=== PATIENT | male | born 1990 | race Caucasian/White ===

== ENCOUNTER 2021-01-19 14:09 | Emergency (ER) | payer OTHER ==
[~2021-01-19] VITALS: Ht 175.3 cm; Wt 113.4 kg
[~2021-01-19 14:09] MED LIST: IBUPROFEN 800800 MG PO; INDERAL40 MG PO; OXCARBAZEPINE; OXCARBAZEPINE150 MG PO; OXCARBAZEPINE300 M1 PO; SEROQUEL XR200 MG PO
[2021-01-19 14:46] LABS: URINE BLOOD NEGATIVE (Negative); URINE CLARITY CLEAR; URINE COLOR YELLOW; URINE GLUCOSE-RANDOM* NEGATIVE (Negative); URINE KETONES TRACE (Negative); URINE LEUKOCYTES-REFLEX NEGATIVE (Negative); URINE NITRITE-REFLEX NEGATIVE (Negative); URINE PROTEIN (DIPSTICK) NEGATIVE (Negative); URINE SPECIFIC GRAVITY >= 1.030 (1.005-1.035)
[2021-01-19 14:48] LABS: ICTOTEST (BILI CONFIRMATORY) Negative (Negative); URINE BILIRUBIN NEGATIVE (Negative)
[2021-01-19 14:57] LABS: ABSOLUTE NEUTROPHILS 6.6 thou/uL (1.4-8.2); BASOPHILS 0.7 % (0.0-2.0); EOSINOPHILS 1.7 % (0.0-3.0); HEMATOCRIT 44.6 % (42.0-52.0); HEMOGLOBIN 15.3 gm/dL (14.0-18.0); LYMPHOCYTES 20.1 % (24.0-44.0); MCH 30.1 pg (26.0-34.0); MCHC 34.4 g/dL (28.0-37.0); MCV 87.6 fL (80.0-100.0); MONOCYTES 8.3 % (1.0-8.0); PLATELET COUNT 262 thou/uL (150-400); POLYS 69.2 % (36.0-66.0); RBC 5.09 mil/uL (4.50-6.00); RDW 13.7 % (10.5-14.5); WBC 9.5 thou/uL (4.0-11.0)
[2021-01-19 15:06] LABS: CALCIUM 9.1 mg/dL (8.5-10.1); CREATININE 0.9 mg/dL (0.7-1.3); POTASSIUM 3.8 mmol/L (3.5-5.1)
[2021-01-19] MEDS ORDERED: ONDANSETRON HCL4 M2 PO (18:20)
[2021-01-19] MEDS ORDERED: HYDROCODON-ACE1 EAC7 PO (18:20)
[2021-01-19 18:27] VITALS: BP 161/105
== END 2021-01-19 18:40 | disposition home or self-care (01) ==
LOC: ER 14:09
PROVIDERS: Emergency Medicine; Nurse Practitioner
DX: R30.0 Dysuria (principal); E66.9 Obesity, unspecified; G40.909 Epilepsy, unspecified, not intractable, without status epilepticus; F84.0 Autistic disorder; Z88.8 Allergy status to other drugs, medicaments and biological substances; Z79.899 Other long term (current) drug therapy

== ENCOUNTER 2021-01-30 18:53 | Emergency (ER) | payer OTHER ==
[~2021-01-30] VITALS: Ht 177.8 cm; Wt 117.9 kg
[~2021-01-30 18:53] MED LIST changes: +HYDROCODON-ACE1 EAC7 PO; +ONDANSETRON HCL4 M2 PO
[2021-01-30 19:39] LABS: URINE BILIRUBIN NEGATIVE (Negative); URINE BLOOD NEGATIVE (Negative); URINE CLARITY CLEAR; URINE COLOR YELLOW; URINE GLUCOSE-RANDOM* NEGATIVE (Negative); URINE KETONES TRACE (Negative); URINE LEUKOCYTES-REFLEX NEGATIVE (Negative); URINE NITRITE-REFLEX NEGATIVE (Negative); URINE PROTEIN (DIPSTICK) NEGATIVE (Negative); URINE SPECIFIC GRAVITY 1.015 (1.005-1.035)
[2021-01-30 20:05] LABS: ABSOLUTE NEUTROPHILS 6.8 thou/uL (1.4-8.2); BASOPHILS 0.7 % (0.0-2.0); EOSINOPHILS 2.1 % (0.0-3.0); HEMATOCRIT 44.6 % (42.0-52.0); HEMOGLOBIN 15.3 gm/dL (14.0-18.0); LYMPHOCYTES 27.4 % (24.0-44.0); MCH 30.6 pg (26.0-34.0); MCHC 34.3 g/dL (28.0-37.0); MCV 89.2 fL (80.0-100.0); MONOCYTES 6.5 % (1.0-8.0); PLATELET COUNT 314 thou/uL (150-400); POLYS 63.3 % (36.0-66.0); WBC 10.7 thou/uL (4.0-11.0)
[2021-01-30 20:14] LABS: ANION GAP 10 mmol/L (7-16); BUN 20 mg/dL (7-18); CALCIUM 9.6 mg/dL (8.5-10.1); CHLORIDE 105 mmol/L (98-107); CO2 27 mmol/L (21-32); CREATININE 0.9 mg/dL (0.7-1.3); GLUCOSE 94 mg/dL (74-106); POTASSIUM 3.7 mmol/L (3.5-5.1); SODIUM 142 mmol/L (136-145)
[2021-01-30 20:20] LABS: DIRECT BILIRUBIN < 0.1 mg/dL (<0.1-0.2); LIPASE 483 U/L (73-393); SGOT 16 U/L (15-37); SGPT 39 U/L (16-63); TOTAL BILIRUBIN 0.4 mg/dL (0.2-1.0); TOTAL PROTEIN 8.2 g/dL (6.4-8.2)
[2021-01-30] MEDS ORDERED: ZANAFLEX4 MG PO (20:30)
[2021-01-30 21:05] VITALS: BP 126/76
== END 2021-01-30 21:36 | disposition home or self-care (01) ==
LOC: ER 18:53
PROVIDERS: Nurse Practitioner
DX: R10.31 Right lower quadrant pain (principal); Z79.899 Other long term (current) drug therapy; Z88.8 Allergy status to other drugs, medicaments and biological substances

== ENCOUNTER → 2021-02-10 | Day surgery (SDC) | payer OTHER ==
[~2021-02-10] VITALS: Ht 175.3 cm; Wt 113.4 kg
[~2021-02-10] MED LIST changes: +ACETAMINOPHEN325 M1 PO; +COLACE 100 MG100 MG PO; +IBUPROFEN 200200 M1 PO; +MIRALAX17 GM PO; +OXYCODONE HCL 55 MG PO; +SEROQUEL XR 20200 MG PO; -SEROQUEL XR200 MG PO; +WELLBUTRIN 100100 MG PO; +ZANAFLEX4 MG PO
[2021-02-10 06:45] LABS: HEMATOCRIT 43.3 % (42.0-52.0); HEMOGLOBIN 14.7 gm/dL (14.0-18.0); MCH 30.1 pg (26.0-34.0); MCHC 33.9 g/dL (28.0-37.0); MCV 88.8 fL (80.0-100.0); RBC 4.88 mil/uL (4.50-6.00); RDW 14.1 % (10.5-14.5); WBC 10.4 thou/uL (4.0-11.0)
[2021-02-10 06:51] LABS: CALCIUM 9.6 mg/dL (8.5-10.1); POTASSIUM 4.2 mmol/L (3.5-5.1)
[2021-02-10 06:57] LABS: ALBUMIN 3.9 g/dL (3.4-5.0); TOTAL BILIRUBIN 0.2 mg/dL (0.2-1.0); TOTAL PROTEIN 8.2 g/dL (6.4-8.2)
[2021-02-10 08:21] VITALS: BP 131/71
[2021-02-10 09:40] VITALS: BP 131/71
--- NOTE | 2021-02-13 18:06 | PATH ---
[facility] [address] [place] [address] PATHOLOGY RPT PROCEDURE Name: MARTIN BEGUM Room #: [facility] M.R.#: [id number] Admission: 02/10/21 Date of : 88 Discharge: Report #: [id number] Path Case #: [id number] [facility] Accession Number: [id number] . 01 Material submitted: . gallbladder - GALLBLADDER . 01 Clinical history: . LAPAROSCOPIC CHOLECYSTECTOMY . 02 Diagnosis: Gallbladder, cholecystectomy: - Mild chronic cholecystitis. - Cholelithiasis. - Abundant cholesterol polyps. 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 02 Electronically signed: . Debra Mccollum MD, Pathologist NPI- [id number] . 01 Gross description: . Fixative: Formalin Labeled: Gallbladder Specimen received: Intact cholecystectomy specimen Dimensions: 8.1 x 3.9 x 2.7 cm Serosa: [place]-smiley and smooth Lymph node: None identified Mucosa: Smiley-green and velvety with extensive yellow stippling and yellow friable areas Average wall thickness: 0.1-0.2 cm Calculi: Yes, one jagged yellow calculus measuring 0.7 cm in greatest dimension Abnormalities: None identified A1- [place] [place] [employer] body, fundus, and the cystic duct margin. ([facility]; 02/11/2021) [facility] 02/11/2021 05 Local . 02 Pathologist provided ICD-10: K80.10, K82.4 . 02 CPT . 291854 Specimen Comment: A courtesy copy of this report has been sent to [phone] Specimen Comment: Report sent to / DR ROMO Performed at: [address] [id number] PATHOLOGY RPT PROCEDURE Name: MARTIN BEGUM Room #: [facility] M.Vero.#: [id number] Admission: 02/10/21 Date of : 88 Discharge: Report #: [id number] Path Case #: [id number] [address], [place], [place] [id number] MD Tyrell Boyd MD Phone: [phone] Performed at: [address] [id number] MD Debra Mccollum MD Phone: [phone]
== END | disposition home or self-care (01) ==
LOC: OR 05:05
PROVIDERS: Student in an Organized Health Care Education/Training Program; ATTEND Surgery
DX: K80.10 Calculus of gallbladder with chronic cholecystitis without obstruction (principal); R10.11 Right upper quadrant pain; G47.30 Sleep apnea, unspecified; Z98.890 Other specified postprocedural states; Z79.899 Other long term (current) drug therapy; Z20.822 Contact with and (suspected) exposure to COVID-19; Z87.891 Personal history of nicotine dependence; Z87.19 Personal history of other diseases of the digestive system; Z98.0 Intestinal bypass and anastomosis status
CPT/HCPCS: 50010; 50101; 50411; 50555; 50558; 51489; 52265; 52266; 53307; 53310; 53312; 54022; 54118; 55245; 56462; 56525; 56526; 58574; 62110; 62900; 70005